=== PATIENT | male | born 1955 | race African-American/Black ===

== ENCOUNTER 2021-08-27 05:10 | Emergency (ER) | payer MEDICARE ==
[2021-08-27] MEDS ORDERED: Dexamethasone 10 MG/ML VIAL ONE (05:23)
[2021-08-27 05:55] LABS: #Lymphocytes 1.9 thou/uL (1.20-3.40); #Monocytes 0.7 thou/uL (0.11-0.59); #Neutrophils 4.9 thou/uL (1.40-6.50); %Basophils 0.1 % (0.0-1.0); %Eosinophils 0.6 % (0.0-10.0); %Lymphocytes 24.8 % (21.0-51.0); %Monocytes 9.7 % (0.0-10.0); %Neutrophils 64.8 % (42.0-75.0); Hemoglobin 14.4 g/dL (14.0-18.0); Mean Corpuscular HGB CONC 33.2 g/dL (32.0-36.0); Mean Corpuscular Hemoglobin 28.8 pg (27.0-31.0); Mean Corpuscular Volume 86.8 fL (78.0-98.0); Mean Platelet Volume 9.3 fL (7.4-10.4); Platelet Count 155 thou/uL (130-400); RBC Distribution Width 14.5 % (11.5-14.5); Red Blood Cell (RBC) Count 4.99 mill/uL (4.70-6.10); White Blood Cell (WBC) Count 7.5 thou/uL (4.8-10.8)
[2021-08-27 06:17] LABS: ALT (SGPT) 19 U/L (8-55); AST (SGOT) 20 U/L (5-34); Albumin 3.7 g/dL (3.4-4.8); Alkaline Phosphatase 56 U/L (40-110); Anion Gap 10 mmol/L (10-20); BUN (Urea Nitrogen) 9 mg/dL (8.4-25.7); Bilirubin, Total 0.6 mg/dL (0.2-1.2); Calc. Creatinine Clearance 0 mL/min (70-130); Carbon Dioxide 29 mmol/L (23-31); Chloride 106 mmol/L (98-107); Globulin 2.7 g/dL (2.4-3.5); Glucose 79 mg/dL (80-115); Potassium 3.4 mmol/L (3.5-5.1); Protein, Total 6.4 g/dL (5.8-8.1); Sodium 142 mmol/L (136-145)
[2021-08-27] MEDS ORDERED: Lorazepam 1 MG TAB ONE (06:53)
== END 2021-08-27 07:03 | disposition home or self-care (01) ==
LOC: EDBD 05:10 → ERS 05:10
DX: J44.1 Chronic obstructive pulmonary disease with (acute) exacerbation (principal); F41.9 Anxiety disorder, unspecified; R94.31 Abnormal electrocardiogram [ECG] [EKG]
CPT/HCPCS: 36415; 71045; 80053; 83880; 84484; 85025; 93005; 94640; 96374; J1100; J7620

== ENCOUNTER 2023-12-03 01:00 | Emergency (ER) | payer MEDICARE, MEDICAID ==
[2023-12-03] MEDS ORDERED: Ipratropium/Albuterol 3 ML NEB ONE (01:26)
[2023-12-03 01:40] LABS: #Monocytes 1.1 thou/uL (0.11-0.59); #Neutrophils 5.2 thou/uL (1.40-6.50); %Basophils 0.5 % (0.0-1.0); %Eosinophils 0.2 % (0.0-10.0); %Monocytes 13.9 % (0.0-10.0); Hematocrit 42.4 % (42.0-52.0); Hemoglobin 14.3 g/dL (14.0-18.0); Mean Corpuscular HGB CONC 33.7 g/dL (32.0-36.0); Mean Corpuscular Hemoglobin 26.7 pg (27.0-31.0); Mean Corpuscular Volume 79.3 fl (78.0-98.0); Mean Platelet Volume 10.2 fL (7.4-10.4); Platelet Count 135 10x3/uL (130-400); RBC Distribution Width 16.8 % (11.5-14.5); Red Blood Cell (RBC) Count 5.35 mill/uL (4.70-6.10); White Blood Cell (WBC) Count 8.2 10x3/uL (4.8-10.8)
[2023-12-03] MEDS ORDERED: cefTRIAXone (ROCEPHIN) 2 GM VIAL ONE (01:48)
[2023-12-03] MEDS ORDERED: Cefepime 2 GM VIAL ONE (01:50)
[2023-12-03 01:53] LABS: ALT (SGPT) 12 U/L (8-55); AST (SGOT) 20 U/L (5-34); Albumin 3.9 g/dL (3.4-4.8); Alkaline Phosphatase 56 U/L (40-110); Anion Gap 16 mmol/L (10-20); BUN (Urea Nitrogen) 6 mg/dL (8.4-25.7); Bilirubin, Total 0.7 mg/dL (0.2-1.2); CK (CPK) 89 U/L (30-200); Calc. Creatinine Clearance 0 mL/min (70-130); Calcium 8.5 mg/dL (7.8-10.44); Carbon Dioxide 25 mmol/L (23-31); Chloride 102 mmol/L (98-107); Estimated GFR 79; Globulin 3.2 g/dL (2.4-3.5); Glucose 93 mg/dL (80-115); Potassium 4.1 mmol/L (3.5-5.1); Protein, Total 7.1 g/dL (5.8-8.1); Sodium 139 mmol/L (136-145)
[2023-12-03 01:56] LABS: Bacteria/HPF None Seen HPF (None Seen); Bilirubin Negative (Negative); Blood, Urine Negative (Negative); CAUTI Indications for Culture Fever or rigors; Clarity Clear (Clear); Glucose, Urine (Dipstick) Normal (Negative); Ketone, Urine Negative (Negative); Leukocyte Negative Leu/uL (Negative); Nitrite Negative (Negative); Protein, Urine (Dipstick) 50 mg/dL (Neg-Trace); RBC/HPF 0-3 HPF (0-3); Specific Gravity, Urine 1.009 (1.002-1.036); Squamous Epithelial 0-3 HPF (0-3); Urobilinogen Normal mg/dL (Less than 2); WBC/HPF 0-3 HPF (0-3); pH, Urine 6.5 (5.0-9.0)
[2023-12-03 01:57] LABS: Acetaminophen Less than 10 mcg/mL (10.0-30.0); Alcohol Less than 10.0 mg/dL (Less than 10); Magnesium 1.9 mg/dL (1.6-2.6); Salicylate Less than 8.0 mg/dL (15.0-30.0)
[2023-12-03 01:59] LABS: Troponin I 0.017 ng/mL (< 0.028)
[2023-12-03 02:01] LABS: Urine Culture Reflex No No
[2023-12-03 02:03] LABS: Amphetamine Not Detected (NotDetected); Barbiturates Screen Not Detected (NotDetected); Benzodiazepine Screen Detected (NotDetected); Cocaine Metabolite Screen Not Detected (NotDetected); Methadone Not Detected (NotDetected); Methamphetamine Not Detected (NotDetected); Opiate Screen Detected (NotDetected); Oxycodone Screen Not Detected (NotDetected); Phencyclidine (PCP) Not Detected (NotDetected); THC/Cannabinoid Screen Detected (NotDetected); Tricyclic Screen Not Detected (NotDetected)
[2023-12-03] MEDS ORDERED: Azithromycin 500 MG VIAL ONE (02:36)
[2023-12-03 03:17] LABS: Influenza A by NAA Not Detected (NotDetected); Influenza B by NAA Not Detected (NotDetected); SARS-CoV-2 NAA Rapid Test Not Detected (NotDetected)
== END 2023-12-03 04:33 | disposition home or self-care (01) ==
LOC: ERS 01:00
DX: J44.1 Chronic obstructive pulmonary disease with (acute) exacerbation (principal); I10 Essential (primary) hypertension
CPT/HCPCS: 0240U; 71045; 80053; 80306; 80307; 81001; 82550; 83605; 83735; 83880; 84484; 85025; 87040; 87086; 87149 ×2; 93005; 94640; 94760; J0456; 36415; 87077; 87186; 96365; 96367; J0692; J0696; J7620

== ENCOUNTER 2024-03-14 22:36 | Inpatient (IN) | payer MEDICAID, MEDICARE ==
[2024-03-14] MEDS ORDERED: Dexamethasone 10 MG/ML VIAL ONE (23:21)
[2024-03-14 23:27] LABS: #Basophils 0.04 10x3/uL (0.0-0.2); %Basophils 0.4 % (0.0-1.0); %Eosinophils 0.7 % (0.0-10.0); %Lymphocytes 25.6 % (21.0-51.0); %Monocytes 11.3 % (0.0-10.0); %Neutrophils 61.7 % (42.0-75.0); Hematocrit 38.4 % (42.0-52.0); Hemoglobin 12.7 g/dL (14.0-18.0); Mean Corpuscular HGB CONC 33.1 g/dL (32.0-36.0); Mean Corpuscular Hemoglobin 27.8 pg (27.0-31.0); Mean Platelet Volume 11.6 fL (7.4-10.4); Platelet Count 178 10x3/uL (130-400); RBC Distribution Width 14.8 % (11.5-14.5); Red Blood Cell (RBC) Count 4.57 mill/uL (4.70-6.10)
[2024-03-14] MEDS ORDERED: Albuterol 2.5 MG (3 mL) NEB ONE (23:40)
[2024-03-14] MEDS ORDERED: Ipratropium/Albuterol 3 ML NEB ONE (23:40)
[2024-03-15] MEDS ORDERED: Magnesium 2 GM/50 ML BAG (IN WATER) ONE (00:02)
[2024-03-15 00:11] LABS: ALT (SGPT) 35 U/L (8-55); AST (SGOT) 75 U/L (5-34); Albumin 3.5 g/dL (3.4-4.8); Alkaline Phosphatase 86 U/L (40-110); Anion Gap 18 mmol/L (10-20); BUN (Urea Nitrogen) 20 mg/dL (8.4-25.7); Bilirubin, Total 0.7 mg/dL (0.2-1.2); Calc. Creatinine Clearance 0 mL/min (70-130); Calcium 8.7 mg/dL (7.8-10.44); Carbon Dioxide 23 mmol/L (23-31); Chloride 107 mmol/L (98-107); Estimated GFR 63; Globulin 3.5 g/dL (2.4-3.5); Glucose 95 mg/dL (80-115); Potassium 3.8 mmol/L (3.5-5.1); Sodium 144 mmol/L (136-145)
[2024-03-15] MEDS ORDERED: LevoFLOXacin 750 mg/D5W 150 ml Premix Bag ONE (00:39)
[2024-03-15] MEDS ORDERED: Aspirin Chewable 81 MG TAB ONE (00:40)
[2024-03-15] MEDS ORDERED: Ondansetron PF 4 MG/2 ML Vial IVP PRN (01:22)
[2024-03-15] MEDS ORDERED: Acetaminophen 325 MG TAB PO PRN (01:22)
[2024-03-15] MEDS: Furosemide 20 MG (2 mL) VIAL SLOW IVP SCH ×2 (03:09→15:11)
[2024-03-15 03:36] VITALS: BMI 18.9
[2024-03-15 04:50] LABS: #Basophils 0.03 10x3/uL (0.0-0.2); #Eosinphils Less than 0.03 10x3/uL (0.0-0.7); %Basophils 0.4 % (0.0-1.0); %Lymphocytes 10.3 % (21.0-51.0); %Monocytes 1.8 % (0.0-10.0); Hematocrit 37.5 % (42.0-52.0); Hemoglobin 12.4 g/dL (14.0-18.0); Mean Corpuscular HGB CONC 33.1 g/dL (32.0-36.0); Mean Corpuscular Hemoglobin 26.9 pg (27.0-31.0); Mean Corpuscular Volume 81.3 fL (78.0-98.0); Platelet Count 186 10x3/uL (130-400); RBC Distribution Width 14.7 % (11.5-14.5); Red Blood Cell (RBC) Count 4.61 mill/uL (4.70-6.10)
[2024-03-15 05:51] LABS: Anion Gap 10 mmol/L (10-20); BUN (Urea Nitrogen) 18 mg/dL (8.4-25.7); Calc. Creatinine Clearance 49 mL/min (70-130); Calcium 8.8 mg/dL (7.8-10.44); Carbon Dioxide 26 mmol/L (23-31); Chloride 108 mmol/L (98-107); Estimated GFR 72; Glucose 111 mg/dL (80-115); Potassium 4.4 mmol/L (3.5-5.1); Sodium 140 mmol/L (136-145)
[2024-03-15] MEDS: methylPREDNISolone Sod Succ 40 MG VIAL IVP SCH (06:18)
[2024-03-15] MEDS: Ipratropium/Albuterol 3 ML NEB NEB SCH (07:57)
[2024-03-15] MEDS: Mometasone 200 MCG/Formoterol 5 MCG 120 PUFF INHALER INH SCH (07:57)
[2024-03-15] MEDS: Enoxaparin 40 MG (0.4 mL) SYRINGE SC SCH (08:58)
[2024-03-15] MEDS: cefTRIAXone\\ROCEPHIN 1 GM in Sodium Chloride 0.9% 100 ML IVPB SCH (20:17)
[2024-03-15] MEDS: ALPRAZolam 0.25 MG TAB PO PRN (21:02)
[2024-03-15] MEDS: Doxycycline 100 MG in Sodium Chloride 0.9% 100 ML IVPB SCH (21:02)
[2024-03-16 05:01] LABS: #Basophils Less than 0.03 10x3/uL (0.0-0.2); #Eosinphils Less than 0.03 10x3/uL (0.0-0.7); %Lymphocytes 11.9 % (21.0-51.0); %Monocytes 7.6 % (0.0-10.0); %Neutrophils 80.2 % (42.0-75.0); Hematocrit 36.4 % (42.0-52.0); Hemoglobin 11.9 g/dL (14.0-18.0); Mean Corpuscular HGB CONC 32.7 g/dL (32.0-36.0); Mean Corpuscular Hemoglobin 27.1 pg (27.0-31.0); Mean Corpuscular Volume 82.9 fL (78.0-98.0); Platelet Count 163 10x3/uL (130-400); RBC Distribution Width 14.9 % (11.5-14.5); Red Blood Cell (RBC) Count 4.39 mill/uL (4.70-6.10)
[2024-03-16 05:22] LABS: Anion Gap 15 mmol/L (10-20); BUN (Urea Nitrogen) 28 mg/dL (8.4-25.7); Calc. Creatinine Clearance 40 mL/min (70-130); Carbon Dioxide 25 mmol/L (23-31); Chloride 105 mmol/L (98-107); Estimated GFR 55; Glucose 141 mg/dL (80-115); Potassium 4.5 mmol/L (3.5-5.1); Sodium 140 mmol/L (136-145)
[2024-03-16] MEDS: Enoxaparin 30 MG (0.3 mL) SYRINGE SC SCH (09:48)
[2024-03-17 04:18] LABS: #Basophils Less than 0.03 10x3/uL (0.0-0.2); #Eosinphils Less than 0.03 10x3/uL (0.0-0.7); %Basophils 0.1 % (0.0-1.0); %Lymphocytes 6.8 % (21.0-51.0); %Monocytes 3.6 % (0.0-10.0); %Neutrophils 88.5 % (42.0-75.0); Hematocrit 36.4 % (42.0-52.0); Hemoglobin 12.2 g/dL (14.0-18.0); Mean Corpuscular HGB CONC 33.5 g/dL (32.0-36.0); Mean Corpuscular Hemoglobin 27.4 pg (27.0-31.0); Mean Corpuscular Volume 81.6 fL (78.0-98.0); Mean Platelet Volume 11.6 fL (7.4-10.4); Platelet Count 178 10x3/uL (130-400); RBC Distribution Width 14.6 % (11.5-14.5); Red Blood Cell (RBC) Count 4.46 mill/uL (4.70-6.10)
[2024-03-17 04:42] LABS: Anion Gap 15 mmol/L (10-20); BUN (Urea Nitrogen) 35 mg/dL (8.4-25.7); Calc. Creatinine Clearance 39 mL/min (70-130); Calcium 9.3 mg/dL (7.8-10.44); Carbon Dioxide 29 mmol/L (23-31); Chloride 99 mmol/L (98-107); Estimated GFR 54; Glucose 165 mg/dL (80-115); Potassium 4.7 mmol/L (3.5-5.1); Sodium 138 mmol/L (136-145)
[2024-03-17] MEDS: Nitroglycerin 0.4 MG TAB (25 Tab Bottle) SL PRN (07:38)
[2024-03-17] MEDS: Ipratropium/Albuterol 3 ML NEB NEB SCH (12:20)
[2024-03-17 15:21] VITALS: BP 123/79; TEMP 97.9
== END 2024-03-17 19:10 | disposition home or self-care (01) | DRG 191 ==
LOC: ERS 22:36 → 2NO 03-15 01:13
PROVIDERS: ADMIT Internal Medicine; ATTEND Internal Medicine
DX: J44.1 Chronic obstructive pulmonary disease with (acute) exacerbation (principal); I50.42 Chronic combined systolic (congestive) and diastolic (congestive) heart failure; J96.11 Chronic respiratory failure with hypoxia; D64.9 Anemia, unspecified; F17.210 Nicotine dependence, cigarettes, uncomplicated; Z99.81 Dependence on supplemental oxygen; Z88.0 Allergy status to penicillin; Z79.899 Other long term (current) drug therapy; Z79.52 Long term (current) use of systemic steroids; Z95.810 Presence of automatic (implantable) cardiac defibrillator
CPT/HCPCS: 36415; 36416; 71045; 80048; 80053; 83605; 83880; 84484; 85025; 87040; 87077; 87149; 93005; 94640; 96365; 96367; 96375; J0696; J1100; J1650; J1940; J1956; J2920; J3475; J3490; J7611; J7620

== ENCOUNTER 2024-03-29 23:17 | Emergency (ER) | payer MEDICAID, MEDICARE ==
[2024-03-30 00:15] LABS: #Basophils 0.04 10x3/uL (0.0-0.2); %Basophils 0.5 % (0.0-1.0); %Eosinophils 0.8 % (0.0-10.0); %Lymphocytes 22.1 % (21.0-51.0); %Monocytes 10.2 % (0.0-10.0); Hematocrit 36.1 % (42.0-52.0); Hemoglobin 11.4 g/dL (14.0-18.0); Mean Corpuscular HGB CONC 31.6 g/dL (32.0-36.0); Mean Corpuscular Hemoglobin 27.8 pg (27.0-31.0); Mean Platelet Volume 10.5 fL (7.4-10.4); Platelet Count 171 10x3/uL (130-400); RBC Distribution Width 14.8 % (11.5-14.5)
[2024-03-30 00:32] LABS: ALT (SGPT) 34 U/L (8-55); AST (SGOT) 51 U/L (5-34); Albumin 3.1 g/dL (3.4-4.8); Alkaline Phosphatase 108 U/L (40-110); Anion Gap 16 mmol/L (10-20); BUN (Urea Nitrogen) 15 mg/dL (8.4-25.7); Bilirubin, Total 0.6 mg/dL (0.2-1.2); Calc. Creatinine Clearance 0 mL/min (70-130); Calcium 8.7 mg/dL (7.8-10.44); Carbon Dioxide 26 mmol/L (23-31); Chloride 108 mmol/L (98-107); Estimated GFR 60; Globulin 3.4 g/dL (2.4-3.5); Glucose 108 mg/dL (80-115); Potassium 4.3 mmol/L (3.5-5.1); Protein, Total 6.5 g/dL (5.8-8.1); Sodium 146 mmol/L (136-145)
[2024-03-30 00:36] LABS: Troponin I 0.031 ng/mL (< 0.028)
[2024-03-30] MEDS ORDERED: Magnesium 2 GM/50 ML BAG (IN WATER) ONE (00:38)
[2024-03-30] MEDS ORDERED: methylPREDNISolone Sod Succ/PF 125 MG/2 ML VIAL ONE (00:38)
[2024-03-30] MEDS ORDERED: Ipratropium/Albuterol 3 ML NEB ONE ×2 (00:40→03:51)
[2024-03-30 09:45] LABS: Troponin I 0.024 ng/mL (< 0.028)
[2024-03-30] MEDS ORDERED: Lorazepam 2 MG/ML VIAL ONE (10:31)
[2024-03-30] MEDS ORDERED: Iopamidol-370 76% 500 ML MDV (1 ML CHARGE) ONE (15:44)
== END 2024-03-30 12:05 | disposition home or self-care (01) ==
LOC: ERS 23:17
DX: J44.9 Chronic obstructive pulmonary disease, unspecified (principal); F41.9 Anxiety disorder, unspecified; I11.0 Hypertensive heart disease with heart failure; I50.9 Heart failure, unspecified; R00.0 Tachycardia, unspecified
CPT/HCPCS: 71045; 71275; 80053; 83880; 84484; 85025; 93005; 94760; J2060; J2930; J3475; Q9967; 36415; 96374; 96375; J7620

== ENCOUNTER 2024-04-08 15:44 | Emergency (ER) | payer MEDICAID, MEDICARE ==
[2024-04-08] MEDS ORDERED: methylPREDNISolone Sod Succ/PF 125 MG/2 ML VIAL ONE (16:57)
[2024-04-08 17:00] LABS: #Basophils Less than 0.03 10x3/uL (0.0-0.2); #Eosinphils Less than 0.03 10x3/uL (0.0-0.7); %Basophils 0.3 % (0.0-1.0); %Eosinophils 0.3 % (0.0-10.0); %Lymphocytes 18.1 % (21.0-51.0); %Monocytes 11.1 % (0.0-10.0); %Neutrophils 69.9 % (42.0-75.0); Hematocrit 39.3 % (42.0-52.0); Hemoglobin 12.4 g/dL (14.0-18.0); Mean Corpuscular HGB CONC 31.6 g/dL (32.0-36.0); Mean Corpuscular Hemoglobin 27.1 pg (27.0-31.0); Mean Corpuscular Volume 85.8 fL (78.0-98.0); Mean Platelet Volume 10.8 fL (7.4-10.4); Platelet Count 179 10x3/uL (130-400); RBC Distribution Width 14.5 % (11.5-14.5); Red Blood Cell (RBC) Count 4.58 mill/uL (4.70-6.10)
[2024-04-08] MEDS ORDERED: Ipratropium/Albuterol 3 ML NEB ONE (17:04)
[2024-04-08 17:13] LABS: Acetaminophen Less than 10 mcg/mL (10.0-30.0); Alcohol Less than 10.0 mg/dL (Less than 10); Salicylate Less than 8.0 mg/dL (15.0-30.0)
[2024-04-08 17:14] LABS: ALT (SGPT) 17 U/L (8-55); AST (SGOT) 16 U/L (5-34); Albumin 3.4 g/dL (3.4-4.8); Alkaline Phosphatase 78 U/L (40-110); Anion Gap 9 mmol/L (10-20); BUN (Urea Nitrogen) 16 mg/dL (8.4-25.7); Bilirubin, Total 0.8 mg/dL (0.2-1.2); Calc. Creatinine Clearance 0 mL/min (70-130); Calcium 9.1 mg/dL (7.8-10.44); Carbon Dioxide 35 mmol/L (23-31); Chloride 103 mmol/L (98-107); Estimated GFR 60; Globulin 3.3 g/dL (2.4-3.5); Glucose 86 mg/dL (83-110); Potassium 4.3 mmol/L (3.5-5.1); Protein, Total 6.7 g/dL (5.8-8.1); Sodium 143 mmol/L (136-145)
== END 2024-04-08 18:24 | disposition home or self-care (01) ==
LOC: ERS 15:44
DX: J44.1 Chronic obstructive pulmonary disease with (acute) exacerbation (principal); I10 Essential (primary) hypertension
CPT/HCPCS: 71045; 80307; 83880; 93005; 94760; 96374; 99285; J2930; 80053; 84443; 85025; J7620

== ENCOUNTER 2024-04-13 05:45 | Observation (INO) | payer MEDICARE ==
[2024-04-13] MEDS ORDERED: Ipratropium/Albuterol 3 ML NEB ONE (07:42)
[2024-04-13] MEDS ORDERED: Albuterol 2.5 MG (0.5 mL) NEB ONE (07:42)
[2024-04-13 08:50] LABS: #Basophils 0.03 10x3/uL (0.0-0.2); %Basophils 0.4 % (0.0-1.0); %Eosinophils 0.4 % (0.0-10.0); %Lymphocytes 27.4 % (21.0-51.0); %Monocytes 11.4 % (0.0-10.0); Hematocrit 40.9 % (42.0-52.0); Hemoglobin 13.4 g/dL (14.0-18.0); Mean Corpuscular HGB CONC 32.8 g/dL (32.0-36.0); Mean Corpuscular Hemoglobin 27.2 pg (27.0-31.0); Mean Platelet Volume 10.1 fL (7.4-10.4); Platelet Count 145 10x3/uL (130-400); RBC Distribution Width 14.4 % (11.5-14.5); Red Blood Cell (RBC) Count 4.93 mill/uL (4.70-6.10)
[2024-04-13 09:27] LABS: ALT (SGPT) 12 U/L (8-55); AST (SGOT) 23 U/L (5-34); Albumin 3.3 g/dL (3.4-4.8); Alkaline Phosphatase 72 U/L (40-110); Anion Gap 13 mmol/L (10-20); BUN (Urea Nitrogen) 9 mg/dL (8.4-25.7); Bilirubin, Total 0.8 mg/dL (0.2-1.2); Calc. Creatinine Clearance 0 mL/min (70-130); Calcium 8.5 mg/dL (7.8-10.44); Carbon Dioxide 30 mmol/L (23-31); Chloride 104 mmol/L (98-107); Estimated GFR 77; Globulin 3.1 g/dL (2.4-3.5); Glucose 85 mg/dL (83-110); Potassium 4.1 mmol/L (3.5-5.1); Protein, Total 6.4 g/dL (5.8-8.1); Sodium 143 mmol/L (136-145)
[2024-04-13] MEDS ORDERED: Ondansetron ODT 4 MG TAB PO PRN (14:15)
[2024-04-13] MEDS ORDERED: Senokot 8.6 MG TAB PO PRN (14:15)
[2024-04-13] MEDS ORDERED: Bisacodyl 5 MG TAB PO PRN (14:15)
[2024-04-13] MEDS ORDERED: Ondansetron PF 4 MG/2 ML Vial SLOW IVP PRN (14:15)
[2024-04-13 14:50] VITALS: BMI 18.3
[2024-04-13] MEDS: predniSONE 20 MG TAB PO SCH (15:25)
[2024-04-13] MEDS: Enoxaparin 30 MG (0.3 mL) SYRINGE SC SCH (15:25)
[2024-04-13] MEDS: Amlodipine 10 MG TAB PO SCH (15:25)
[2024-04-13] MEDS: Azithromycin 250 MG TAB PO SCH (15:25)
[2024-04-13] MEDS: Ipratropium/Albuterol 3 ML NEB NEB SCH (17:11)
[2024-04-13] MEDS: traZODone HCl 50 MG TAB PO SCH (20:48)
[2024-04-13] MEDS: Famotidine 20 MG TAB PO SCH (20:48)
[2024-04-13] MEDS: guaiFENesin ER 600 MG TAB PO SCH (20:48)
[2024-04-13] MEDS: HYDROcodone/Acetaminophen 5/325 mg Tablet PO PRN (21:39)
[2024-04-14 07:01] LABS: #Basophils Less than 0.03 10x3/uL (0.0-0.2); #Eosinphils Less than 0.03 10x3/uL (0.0-0.7); %Basophils 0.1 % (0.0-1.0); %Lymphocytes 17.1 % (21.0-51.0); %Monocytes 8.3 % (0.0-10.0); %Neutrophils 74.1 % (42.0-75.0); Hematocrit 37.6 % (42.0-52.0); Hemoglobin 12.2 g/dL (14.0-18.0); Mean Corpuscular HGB CONC 32.4 g/dL (32.0-36.0); Mean Corpuscular Hemoglobin 26.1 pg (27.0-31.0); Mean Corpuscular Volume 80.5 fL (78.0-98.0); Mean Platelet Volume 11.5 fL (7.4-10.4); Platelet Count 174 10x3/uL (130-400); RBC Distribution Width 14.1 % (11.5-14.5); Red Blood Cell (RBC) Count 4.67 mill/uL (4.70-6.10)
[2024-04-14 07:21] LABS: Anion Gap 10 mmol/L (10-20); BUN (Urea Nitrogen) 9 mg/dL (8.4-25.7); Calc. Creatinine Clearance 43 mL/min (70-130); Calcium 8.4 mg/dL (7.8-10.44); Carbon Dioxide 29 mmol/L (23-31); Chloride 103 mmol/L (98-107); Estimated GFR 66; Glucose 170 mg/dL (83-110); Potassium 4.1 mmol/L (3.5-5.1); Sodium 138 mmol/L (136-145)
[2024-04-14] MEDS: Enoxaparin 30 MG (0.3 mL) SYRINGE SC SCH (08:06)
[2024-04-14] MEDS: predniSONE 20 MG TAB PO SCH (08:09)
[2024-04-14] MEDS: Azithromycin 250 MG TAB PO SCH (08:09)
[2024-04-14] MEDS: Amlodipine 10 MG TAB PO SCH (08:09)
[2024-04-14 12:24] VITALS: BMI 18.3
[2024-04-14] MEDS: Acetaminophen 325 MG TAB PO PRN (16:23)
[2024-04-14 17:19] VITALS: BP 139/71; TEMP 98.4
== END 2024-04-14 17:01 | disposition short-term general hospital (02) ==
LOC: ERS 05:45 → T4-A 11:57
PROVIDERS: ADMIT Internal Medicine; ATTEND Internal Medicine
DX: J96.21 Acute and chronic respiratory failure with hypoxia (principal); J44.1 Chronic obstructive pulmonary disease with (acute) exacerbation; I50.42 Chronic combined systolic (congestive) and diastolic (congestive) heart failure; I13.0 Hypertensive heart and chronic kidney disease with heart failure and stage 1 through stage 4 chronic kidney disease, or unspecified chronic kidney disease; N18.2 Chronic kidney disease, stage 2 (mild); D63.1 Anemia in chronic kidney disease; G47.00 Insomnia, unspecified; Z86.718 Personal history of other venous thrombosis and embolism; Z79.01 Long term (current) use of anticoagulants; Z99.81 Dependence on supplemental oxygen; Z79.51 Long term (current) use of inhaled steroids; Z88.0 Allergy status to penicillin
CPT/HCPCS: 71045; 80048; 80053; 85025 ×2; 87633; 87798 ×2; 93005; 94640 ×3; 94760; 97116; 99285; J1650 ×2; 36415; 96372; G0378; J7512; J7611; J7620

== ENCOUNTER 2024-04-17 14:30 | Emergency (ER) | payer MEDICARE ==
[2024-04-17 15:25] LABS: #Basophils Less than 0.03 10x3/uL (0.0-0.2); %Basophils 0.2 % (0.0-1.0); %Eosinophils 0.5 % (0.0-10.0); %Lymphocytes 24.3 % (21.0-51.0); %Monocytes 13.5 % (0.0-10.0); %Neutrophils 61.2 % (42.0-75.0); Hematocrit 45.7 % (42.0-52.0); Hemoglobin 14.4 g/dL (14.0-18.0); Mean Corpuscular HGB CONC 31.5 g/dL (32.0-36.0); Mean Corpuscular Hemoglobin 26.9 pg (27.0-31.0); Mean Corpuscular Volume 85.4 fL (78.0-98.0); Mean Platelet Volume 11.2 fL (7.4-10.4); Platelet Count 175 10x3/uL (130-400); RBC Distribution Width 14.6 % (11.5-14.5); Red Blood Cell (RBC) Count 5.35 mill/uL (4.70-6.10)
[2024-04-17 15:35] LABS: Acetaminophen Less than 10 mcg/mL (10.0-30.0); Alcohol Less than 10.0 mg/dL (Less than 10); Salicylate Less than 8.0 mg/dL (15.0-30.0)
[2024-04-17 15:36] LABS: ALT (SGPT) 20 U/L (8-55); AST (SGOT) 24 U/L (5-34); Albumin 3.8 g/dL (3.4-4.8); Alkaline Phosphatase 72 U/L (40-110); Anion Gap 11 mmol/L (10-20); BUN (Urea Nitrogen) 14 mg/dL (8.4-25.7); Bilirubin, Total 0.6 mg/dL (0.2-1.2); Calc. Creatinine Clearance 0 mL/min (70-130); Carbon Dioxide 34 mmol/L (23-31); Chloride 105 mmol/L (98-107); Estimated GFR 59; Globulin 3.4 g/dL (2.4-3.5); Glucose 165 mg/dL (83-110); Potassium 3.8 mmol/L (3.5-5.1); Protein, Total 7.2 g/dL (5.8-8.1); Sodium 146 mmol/L (136-145)
[2024-04-17 15:42] LABS: Bacteria/HPF None Seen HPF (None Seen); Bilirubin Negative (Negative); Blood, Urine Negative (Negative); CAUTI Indications for Culture Alt mental st,lethar; Clarity Clear (Clear); Glucose, Urine (Dipstick) Normal (Negative); Ketone, Urine Negative (Negative); Leukocyte Negative Leu/uL (Negative); Nitrite Negative (Negative); Protein, Urine (Dipstick) 70 mg/dL (Neg-Trace); RBC/HPF 0-3 HPF (0-3); Specific Gravity, Urine 1.014 (1.002-1.036); Squamous Epithelial 0-3 HPF (0-3); Urobilinogen Normal mg/dL (Less than 2); WBC/HPF 0-3 HPF (0-3); pH, Urine 5.5 (5.0-9.0)
[2024-04-17 15:44] LABS: Urine Culture Reflex No No
[2024-04-17 15:47] LABS: Amphetamine Not Detected (NotDetected); Barbiturates Screen Not Detected (NotDetected); Benzodiazepine Screen Detected (NotDetected); Cocaine Metabolite Screen Not Detected (NotDetected); Methadone Not Detected (NotDetected); Methamphetamine Not Detected (NotDetected); Opiate Screen Not Detected (NotDetected); Oxycodone Screen Not Detected (NotDetected); Phencyclidine (PCP) Not Detected (NotDetected); THC/Cannabinoid Screen Not Detected (NotDetected); Tricyclic Screen Not Detected (NotDetected)
[2024-04-17] MEDS ORDERED: LORazepam 2 MG/ML SYR.(CARPUJECT) ONE (17:48)
[2024-04-18] MEDS ORDERED: Ipratropium/Albuterol 3 ML NEB ONE (00:14)
== END 2024-04-17 19:01 ==
LOC: ERS 14:30
DX: R41.82 Altered mental status, unspecified (principal); J44.9 Chronic obstructive pulmonary disease, unspecified; I10 Essential (primary) hypertension; Z55.6 Problems related to health literacy
CPT/HCPCS: 70450; 71045; 80306; 80307; 81001; 82140; 93005; 96374; 96375; 99285; J1790; J2060; 80053; 84443; 85025

== ENCOUNTER 2024-04-17 21:12 | Inpatient (IN) | payer MEDICARE ==
[~2024-04-17 21:12] MED LIST: Iopamidol-370 76% 500 ML MDV (1 ML CHARGE) ONE
[2024-04-17] MEDS ORDERED: methylPREDNISolone Sod Succ/PF 125 MG/2 ML VIAL ONE (22:23)
[2024-04-17] MEDS ORDERED: Ipratropium/Albuterol 3 ML NEB ONE (22:23)
[2024-04-17 22:59] LABS: #Basophils Less than 0.03 10x3/uL (0.0-0.2); %Basophils 0.3 % (0.0-1.0); %Eosinophils 0.5 % (0.0-10.0); %Monocytes 12.6 % (0.0-10.0); %Neutrophils 65.2 % (42.0-75.0); Hematocrit 40.8 % (42.0-52.0); Hemoglobin 13.1 g/dL (14.0-18.0); Mean Corpuscular HGB CONC 32.1 g/dL (32.0-36.0); Mean Corpuscular Hemoglobin 26.5 pg (27.0-31.0); Mean Corpuscular Volume 82.6 fL (78.0-98.0); Mean Platelet Volume 12.5 fL (7.4-10.4); Platelet Count 165 10x3/uL (130-400); RBC Distribution Width 14.6 % (11.5-14.5); Red Blood Cell (RBC) Count 4.94 mill/uL (4.70-6.10)
[2024-04-17 23:09] LABS: ALT (SGPT) 17 U/L (8-55); AST (SGOT) 26 U/L (5-34); Albumin 3.4 g/dL (3.4-4.8); Alkaline Phosphatase 64 U/L (40-110); Anion Gap 10 mmol/L (10-20); BUN (Urea Nitrogen) 12 mg/dL (8.4-25.7); Bilirubin, Total 0.5 mg/dL (0.2-1.2); Calc. Creatinine Clearance 0 mL/min (70-130); Calcium 8.5 mg/dL (7.8-10.44); Carbon Dioxide 31 mmol/L (23-31); Chloride 106 mmol/L (98-107); Estimated GFR 80; Globulin 2.9 g/dL (2.4-3.5); Glucose 168 mg/dL (83-110); Magnesium 1.7 mg/dL (1.6-2.6); Potassium 3.9 mmol/L (3.5-5.1); Protein, Total 6.3 g/dL (5.8-8.1); Sodium 143 mmol/L (136-145)
[2024-04-17 23:15] LABS: Troponin I 0.041 ng/mL (< 0.028)
[2024-04-17 23:52] LABS: Influenza A by NAA Not Detected (NotDetected); Influenza B by NAA Not Detected (NotDetected); SARS-CoV-2 NAA Rapid Test Not Detected (NotDetected)
[2024-04-18] MEDS ORDERED: Azithromycin 500 MG VIAL ONE (01:31)
[2024-04-18] MEDS ORDERED: Acetaminophen 650 MG Suppository PR PRN (01:32)
[2024-04-18] MEDS ORDERED: Acetaminophen 325 MG TAB PO PRN (01:32)
[2024-04-18] MEDS ORDERED: Nitroglycerin 0.4 MG TAB (25 Tab Bottle) SL PRN (01:32)
[2024-04-18] MEDS ORDERED: Ondansetron ODT 4 MG TAB PO PRN (01:32)
[2024-04-18] MEDS ORDERED: Ondansetron PF 4 MG/2 ML Vial IVP PRN (01:32)
[2024-04-18] MEDS ORDERED: Nitroglycerin 0.4 MG TAB 1 EACH ONE (01:33)
[2024-04-18] MEDS ORDERED: Benzonatate 100 MG CAP PO PRN (01:35)
[2024-04-18] MEDS ORDERED: Guaifenesin DM 100-10/5 ML UDCUP PO PRN (01:35)
[2024-04-18] MEDS ORDERED: Sterile Water 10 ML ONE (02:17)
[2024-04-18] MEDS ORDERED: OLANZapine 10 MG VIAL IM ONE (02:17)
[2024-04-18 02:29] LABS: #Basophils Less than 0.03 10x3/uL (0.0-0.2); #Eosinphils Less than 0.03 10x3/uL (0.0-0.7); %Basophils 0.1 % (0.0-1.0); %Lymphocytes 8.6 % (21.0-51.0); %Monocytes 1.7 % (0.0-10.0); %Neutrophils 89.2 % (42.0-75.0); Hemoglobin 13.2 g/dL (14.0-18.0); Mean Corpuscular HGB CONC 32.2 g/dL (32.0-36.0); Mean Corpuscular Hemoglobin 26.5 pg (27.0-31.0); Mean Corpuscular Volume 82.3 fL (78.0-98.0); Mean Platelet Volume 11.6 fL (7.4-10.4); Platelet Count 171 10x3/uL (130-400); RBC Distribution Width 14.6 % (11.5-14.5); Red Blood Cell (RBC) Count 4.98 mill/uL (4.70-6.10)
[2024-04-18 02:57] LABS: Troponin I 0.028 ng/mL (< 0.028)
[2024-04-18 03:25] LABS: Anion Gap 14 mmol/L (10-20); BUN (Urea Nitrogen) 12 mg/dL (8.4-25.7); Calc. Creatinine Clearance 0 mL/min (70-130); Calcium 8.5 mg/dL (7.8-10.44); Carbon Dioxide 27 mmol/L (23-31); Cardiac Risk 2.7 (Less than 4.5); Chloride 105 mmol/L (98-107); Cholesterol 154 mg/dl (< 200 Desired); Estimated GFR 74; Glucose 175 mg/dL (83-110); HDL Cholesterol 57 mg/dL (>60 Neg Risk); LDL Cholesterol, Calculated 78 mg/dL; Potassium 3.7 mmol/L (3.5-5.1); Sodium 142 mmol/L (136-145); Triglycerides 95 mg/dL (Less than 150)
[2024-04-18 03:58] VITALS: BMI 19.0
[2024-04-18] MEDS ORDERED: Ipratropium/Albuterol 3 ML NEB ONE (04:55)
[2024-04-18] MEDS ORDERED: Magnesium 2 GM/50 ML BAG (IN WATER) ONE (04:55)
[2024-04-18] MEDS ORDERED: Cefepime 1 GM VIAL ONE (04:55)
[2024-04-18] MEDS ORDERED: cefTRIAXone (ROCEPHIN) 1 GM VIAL ONE (04:56)
[2024-04-18] MEDS: Ipratropium/Albuterol 3 ML NEB NEB SCH (05:01)
[2024-04-18] MEDS: cefTRIAXone\\ROCEPHIN 1 GM in Sodium Chloride 0.9% 100 ML IVPB SCH (05:03)
[2024-04-18] MEDS: Magnesium 2 GM/50 ML(in water) 2 GM in Premix 1 BAG IVPB SCH (06:00)
[2024-04-18] MEDS ORDERED: methylPREDNISolone Sod Succ 40 MG VIAL ONE ×2 (07:28→12:20)
[2024-04-18 07:37] LABS: Troponin I 0.026 ng/mL (< 0.028)
[2024-04-18] MEDS: methylPREDNISolone Sod Succ 40 MG VIAL IVP SCH (07:43)
[2024-04-18] MEDS ORDERED: Amlodipine 5 MG TAB ONE (09:17)
[2024-04-18] MEDS ORDERED: Aspirin Chewable 81 MG TAB ONE (09:17)
[2024-04-18] MEDS ORDERED: guaiFENesin ER 600 MG TAB ONE (09:17)
[2024-04-18] MEDS ORDERED: Enoxaparin 40 MG (0.4 mL) SYRINGE ONE (09:18)
[2024-04-18] MEDS: Amlodipine 10 MG TAB PO SCH (09:26)
[2024-04-18] MEDS: guaiFENesin ER 600 MG TAB PO SCH (09:27)
[2024-04-18] MEDS: Aspirin Chewable 81 MG TAB PO SCH (09:27)
[2024-04-18] MEDS: Enoxaparin 40 MG (0.4 mL) SYRINGE SC SCH (09:32)
[2024-04-18] MEDS ORDERED: Albuterol 2.5 MG (3 mL) NEB NEB SCH (10:30)
[2024-04-18] MEDS: Mometasone 200 MCG/Formoterol 5 MCG 120 PUFF INHALER INH SCH (10:45)
[2024-04-18] MEDS ORDERED: Lorazepam 0.5 MG TAB ONE (11:41)
[2024-04-18] MEDS: Lorazepam 0.5 MG TAB PO PRN (11:43)
[2024-04-18] MEDS: traZODone HCl 50 MG TAB PO SCH (22:39)
[2024-04-19] MEDS: Azithromycin 500 MG in Sodium Chloride 0.9% 250 ML 250 ML IVPB SCH (02:11)
[2024-04-19] MEDS: Ipratropium Bromide 2.5 ml Neb NEB PRN (04:39)
[2024-04-19 04:43] LABS: #Basophils Less than 0.03 10x3/uL (0.0-0.2); #Eosinphils Less than 0.03 10x3/uL (0.0-0.7); %Lymphocytes 5.9 % (21.0-51.0); %Neutrophils 89.8 % (42.0-75.0); Hematocrit 34.8 % (42.0-52.0); Hemoglobin 11.4 g/dL (14.0-18.0); Mean Corpuscular HGB CONC 32.8 g/dL (32.0-36.0); Mean Corpuscular Hemoglobin 26.2 pg (27.0-31.0); Mean Platelet Volume 11.3 fL (7.4-10.4); Platelet Count 158 10x3/uL (130-400); RBC Distribution Width 14.2 % (11.5-14.5); Red Blood Cell (RBC) Count 4.35 mill/uL (4.70-6.10)
[2024-04-19 04:58] LABS: Anion Gap 5 mmol/L (10-20); BUN (Urea Nitrogen) 21 mg/dL (8.4-25.7); Calc. Creatinine Clearance 49 mL/min (70-130); Calcium 8.1 mg/dL (7.8-10.44); Carbon Dioxide 32 mmol/L (23-31); Chloride 101 mmol/L (98-107); Estimated GFR 63; Glucose 167 mg/dL (83-110); Magnesium 1.9 mg/dL (1.6-2.6); Sodium 134 mmol/L (136-145)
[2024-04-19 13:13] VITALS: BMI 19.0
[2024-04-19] MEDS: Lorazepam 0.5 MG TAB PO SCH (14:28)
[2024-04-19] MEDS: Dexamethasone 4 MG TAB PO SCH (17:54)
[2024-04-19] MEDS: LevoFLOXacin 750 MG TAB PO SCH (17:54)
[2024-04-20 04:01] LABS: #Basophils Less than 0.03 10x3/uL (0.0-0.2); #Eosinphils Less than 0.03 10x3/uL (0.0-0.7); %Basophils 0.1 % (0.0-1.0); %Lymphocytes 5.6 % (21.0-51.0); %Monocytes 5.7 % (0.0-10.0); %Neutrophils 88.1 % (42.0-75.0); Hematocrit 34.6 % (42.0-52.0); Hemoglobin 11.4 g/dL (14.0-18.0); Mean Corpuscular HGB CONC 32.9 g/dL (32.0-36.0); Mean Corpuscular Hemoglobin 27.1 pg (27.0-31.0); Mean Corpuscular Volume 82.4 fL (78.0-98.0); Platelet Count 186 10x3/uL (130-400); RBC Distribution Width 14.6 % (11.5-14.5)
[2024-04-20 04:44] LABS: Anion Gap 10 mmol/L (10-20); BUN (Urea Nitrogen) 25 mg/dL (8.4-25.7); Calc. Creatinine Clearance 53 mL/min (70-130); Calcium 8.9 mg/dL (7.8-10.44); Carbon Dioxide 32 mmol/L (23-31); Chloride 105 mmol/L (98-107); Estimated GFR 68; Glucose 123 mg/dL (83-110); Potassium 4.7 mmol/L (3.5-5.1); Sodium 142 mmol/L (136-145)
[2024-04-20] MEDS: LevoFLOXacin 750 MG TAB PO SCH (09:06)
[2024-04-20] MEDS: Lorazepam 1 MG TAB PO SCH (11:24)
[2024-04-20 12:21] VITALS: BP 114/74; TEMP 97.5
== END 2024-04-20 17:00 | disposition home or self-care (01) | DRG 191 ==
LOC: ERS 21:12 → ERHOLD 04-18 01:28 → OBSVTOIN 04-18 03:04 → 2SE 04-18 14:15
PROVIDERS: ADMIT Student in an Organized Health Care Education/Training Program; ATTEND Internal Medicine
DX: J44.1 Chronic obstructive pulmonary disease with (acute) exacerbation (principal); I24.89 Other forms of acute ischemic heart disease; J96.11 Chronic respiratory failure with hypoxia; I50.42 Chronic combined systolic (congestive) and diastolic (congestive) heart failure; N18.2 Chronic kidney disease, stage 2 (mild); G47.00 Insomnia, unspecified; D63.1 Anemia in chronic kidney disease; F17.210 Nicotine dependence, cigarettes, uncomplicated; Z99.81 Dependence on supplemental oxygen; Z79.51 Long term (current) use of inhaled steroids; Z95.0 Presence of cardiac pacemaker; Z91.199 Patient's noncompliance with other medical treatment and regimen due to unspecified reason
CPT/HCPCS: 36415; 71275; 80048; 80061; 83735; 83880; 84484; 85025; 93005; 94760; 96372; 96374; 96375; J0456; J0692; J0696; J1650; J2470; J2919; J2930; J3475; J7050; J7620; J8540; Q9967

== ENCOUNTER 2024-04-21 06:18 | Inpatient (IN) | payer MEDICARE ==
[2024-04-21 06:58] LABS: Actual Bicarbonate (HCO3v) 32.4 mEq/L (22-28); Base Excess 4.6 mEq/L (-2.0 to +3.0); Calcium, Ionized (venous) 1.06 mmol/L (1.16-1.32); Chloride (VBG) 104 mmol/L (98-106); Hematocrit-VBG 42 % (42.0-52.0); Hemoglobin (Hb) 14.3 g/dL (12.6-17.4); Potassium (VBG) 5.03 mmol/L (3.70-5.30); Sodium 144 mmol/L (133-146); pH (venous) 7.333 (7.32-7.43)
[2024-04-21] MEDS ORDERED: methylPREDNISolone Sod Succ/PF 125 MG/2 ML VIAL ONE (07:01)
[2024-04-21 07:13] LABS: #Basophils Less than 0.03 10x3/uL (0.0-0.2); #Eosinphils Less than 0.03 10x3/uL (0.0-0.7); %Basophils 0.1 % (0.0-1.0); %Eosinophils 0.1 % (0.0-10.0); %Lymphocytes 15.5 % (21.0-51.0); %Monocytes 10.2 % (0.0-10.0); %Neutrophils 73.7 % (42.0-75.0); Hematocrit 42.2 % (42.0-52.0); Mean Corpuscular HGB CONC 30.8 g/dL (32.0-36.0); Mean Corpuscular Hemoglobin 26.4 pg (27.0-31.0); Mean Corpuscular Volume 85.8 fL (78.0-98.0); Platelet Count 149 10x3/uL (130-400); RBC Distribution Width 15.1 % (11.5-14.5); Red Blood Cell (RBC) Count 4.92 mill/uL (4.70-6.10)
[2024-04-21 07:59] LABS: Troponin I 0.049 ng/mL (< 0.028)
[2024-04-21 08:01] LABS: ALT (SGPT) 36 U/L (8-55); AST (SGOT) 59 U/L (5-34); Albumin 3.5 g/dL (3.4-4.8); Alkaline Phosphatase 69 U/L (40-110); Anion Gap 15 mmol/L (10-20); BUN (Urea Nitrogen) 20 mg/dL (8.4-25.7); Bilirubin, Total 0.4 mg/dL (0.2-1.2); Calc. Creatinine Clearance 0 mL/min (70-130); Calcium 8.8 mg/dL (7.8-10.44); Carbon Dioxide 27 mmol/L (23-31); Chloride 105 mmol/L (98-107); Estimated GFR 65; Glucose 70 mg/dL (83-110); Potassium 4.9 mmol/L (3.5-5.1); Protein, Total 6.5 g/dL (5.8-8.1); Sodium 142 mmol/L (136-145)
[2024-04-21] MEDS ORDERED: Albuterol 2.5 MG (0.5 mL) NEB ONE (08:01)
[2024-04-21] MEDS ORDERED: Ipratropium Bromide 2.5 ml Neb ONE (08:01)
[2024-04-21 09:26] LABS: Influenza A by NAA Not Detected (NotDetected); Influenza B by NAA Not Detected (NotDetected); SARS-CoV-2 NAA Rapid Test Not Detected (NotDetected)
[2024-04-21] MEDS ORDERED: Ipratropium/Albuterol 3 ML NEB NEB PRN (09:37)
[2024-04-21] MEDS ORDERED: Acetaminophen 650 MG Suppository PR PRN (09:38)
[2024-04-21] MEDS ORDERED: Senokot S 8.6-50 MG TAB PO PRN (09:38)
[2024-04-21] MEDS ORDERED: Ondansetron PF 4 MG/2 ML Vial IVP PRN ×2 (09:38→09:45)
[2024-04-21] MEDS ORDERED: Ondansetron ODT 4 MG TAB PO PRN (09:38)
[2024-04-21] MEDS ORDERED: Bisacodyl 5 MG TAB PO PRN (09:38)
[2024-04-21] MEDS ORDERED: Acetaminophen 325 MG TAB PO PRN (09:45)
[2024-04-21] MEDS ORDERED: Ondansetron ODT 4 MG TAB SL PRN (09:45)
[2024-04-21 10:24] LABS: Troponin I 0.045 ng/mL (< 0.028)
[2024-04-21] MEDS ORDERED: Cefepime 2 GM VIAL ONE (10:34)
[2024-04-21] MEDS ORDERED: Vancomycin 1 GM/200 ML (FROZEN) BAG ONE (10:34)
[2024-04-21] MEDS: Ipratropium/Albuterol 3 ML NEB NEB SCH (10:34)
[2024-04-21] MEDS ORDERED: Sodium Chloride 0.9% 100 ML ONE (10:35)
[2024-04-21 11:05] VITALS: BMI 19.0
[2024-04-21] MEDS ORDERED: VANCOMYCIN IVPB PRN (12:06)
[2024-04-21] MEDS: Vancomycin HCl 250 MG, Admixture Fee 1 EACH in Sodium Chloride 0.9% 100 ML IVPB SCH (12:56)
[2024-04-21] MEDS: methylPREDNISolone Sod Succ 40 MG VIAL IVP SCH ×2 (13:08→18:09)
[2024-04-21] MEDS: Lorazepam 0.5 MG TAB PO PRN (13:08)
[2024-04-21 13:16] LABS: Legionella Urinary Ag Negative (Negative); Strep pneumo Urine Ag NEGATIVE (NEGATIVE)
[2024-04-21 13:31] LABS: Troponin I 0.042 ng/mL (< 0.028)
[2024-04-21] MEDS: Mometasone 200 MCG/Formoterol 5 MCG 120 PUFF INHALER INH SCH (18:32)
[2024-04-21] MEDS: traZODone HCl 50 MG TAB PO SCH (20:02)
[2024-04-21] MEDS: guaiFENesin ER 600 MG TAB PO SCH (20:02)
[2024-04-21] MEDS ORDERED: Vancomycin 1 GM in Premix 1 BAG IVPB SCH (21:00)
[2024-04-22] MEDS: Dexmedetomidine In 0.9 % NaCl 100 ML IVPB SCH (00:19)
[2024-04-22 05:32] LABS: #Basophils Less than 0.03 10x3/uL (0.0-0.2); #Eosinphils Less than 0.03 10x3/uL (0.0-0.7); %Basophils 0.1 % (0.0-1.0); %Lymphocytes 5.3 % (21.0-51.0); %Monocytes 8.1 % (0.0-10.0); Hematocrit 34.2 % (42.0-52.0); Hemoglobin 11.1 g/dL (14.0-18.0); Mean Corpuscular HGB CONC 32.5 g/dL (32.0-36.0); Mean Corpuscular Hemoglobin 26.9 pg (27.0-31.0); Mean Corpuscular Volume 82.8 fL (78.0-98.0); Mean Platelet Volume 11.6 fL (7.4-10.4); Platelet Count 164 10x3/uL (130-400); RBC Distribution Width 14.6 % (11.5-14.5); Red Blood Cell (RBC) Count 4.13 mill/uL (4.70-6.10)
[2024-04-22 05:43] LABS: Vancomycin, Random 7.2 ug/mL (See Comment)
[2024-04-22 05:46] LABS: ALT (SGPT) 30 U/L (8-55); AST (SGOT) 21 U/L (5-34); Albumin 2.9 g/dL (3.4-4.8); Alkaline Phosphatase 74 U/L (40-110); Anion Gap 11 mmol/L (10-20); BUN (Urea Nitrogen) 24 mg/dL (8.4-25.7); Bilirubin, Total 0.3 mg/dL (0.2-1.2); Calc. Creatinine Clearance 43 mL/min (70-130); Calcium 8.5 mg/dL (7.8-10.44); Carbon Dioxide 30 mmol/L (23-31); Chloride 104 mmol/L (98-107); Estimated GFR 62; Globulin 2.4 g/dL (2.4-3.5); Glucose 195 mg/dL (83-110); Potassium 4.5 mmol/L (3.5-5.1); Protein, Total 5.3 g/dL (5.8-8.1); Sodium 140 mmol/L (136-145)
[2024-04-22] MEDS: ALPRAZolam 1 MG TAB PO SCH (09:14)
[2024-04-22] MEDS: Famotidine/PF 20 mg/2ml Vial SLOW IVP SCH (09:14)
[2024-04-22] MEDS: Aspirin Chewable 81 MG TAB PO SCH (09:14)
[2024-04-22] MEDS: Enoxaparin 30 MG (0.3 mL) SYRINGE SC SCH (09:14)
[2024-04-22] MEDS ORDERED: Vancomycin (BATCH) 1.25 GM in Premix 1 BAG IVPB SCH (11:00)
[2024-04-22] MEDS ORDERED: LevoFLOXacin 750 mg/D5W 750 MG in Premix 1 BAG IVPB SCH (14:00)
[2024-04-22] MEDS: ALPRAZolam 1 MG TAB PO PRN (14:54)
[2024-04-22] MEDS: Acetaminophen 325 MG TAB PO PRN (19:35)
[2024-04-22] MEDS: Sacubitril 24MG/Valsartan 26 MG TAB PO SCH (20:07)
[2024-04-22] MEDS: QUEtiapine 25 MG TAB PO SCH (20:08)
[2024-04-23] MEDS: LevoFLOXacin 500 MG TAB PO SCH (05:34)
[2024-04-23 07:09] LABS: #Basophils Less than 0.03 10x3/uL (0.0-0.2); %Basophils 0.1 % (0.0-1.0); %Eosinophils 0.2 % (0.0-10.0); %Lymphocytes 13.3 % (21.0-51.0); %Monocytes 9.8 % (0.0-10.0); Hematocrit 39.5 % (42.0-52.0); Mean Corpuscular HGB CONC 32.9 g/dL (32.0-36.0); Mean Corpuscular Hemoglobin 26.9 pg (27.0-31.0); Mean Corpuscular Volume 81.6 fL (78.0-98.0); Mean Platelet Volume 11.3 fL (7.4-10.4); Platelet Count 169 10x3/uL (130-400); RBC Distribution Width 14.7 % (11.5-14.5); Red Blood Cell (RBC) Count 4.84 mill/uL (4.70-6.10)
[2024-04-23 07:34] LABS: Anion Gap 12 mmol/L (10-20); BUN (Urea Nitrogen) 24 mg/dL (8.4-25.7); Calc. Creatinine Clearance 53 mL/min (70-130); Carbon Dioxide 32 mmol/L (23-31); Chloride 101 mmol/L (98-107); Estimated GFR 80; Glucose 85 mg/dL (83-110); Potassium 4.7 mmol/L (3.5-5.1); Sodium 140 mmol/L (136-145)
[2024-04-23 07:53] VITALS: TEMP 98.1
[2024-04-23] MEDS: Pantoprazole DR 40 MG TAB PO SCH (08:51)
[2024-04-23] MEDS: methylPREDNISolone Sod Succ 40 MG VIAL IVP SCH (08:52)
[2024-04-23 12:08] VITALS: BP 117/72
[2024-04-23] MEDS: predniSONE 20 MG TAB PO SCH (12:29)
[2024-04-24] MEDS ORDERED: predniSONE 20 MG TAB PO SCH (08:00)
== END 2024-04-23 13:43 | disposition home or self-care (01) | DRG 193 ==
LOC: ERS 06:18 → IMCU/EMU 10:26 → T4-A 04-22 13:22
PROVIDERS: ADMIT Family Medicine; ATTEND Internal Medicine
PROC: 5A09357 Assistance with Respiratory Ventilation, Less than 24 Consecutive Hours, Continuous Positive Airway Pressure (ICD-10-PCS; principal; 2024-04-21)
DX: J18.9 Pneumonia, unspecified organism (principal); J96.21 Acute and chronic respiratory failure with hypoxia; J44.1 Chronic obstructive pulmonary disease with (acute) exacerbation; I50.42 Chronic combined systolic (congestive) and diastolic (congestive) heart failure; I13.0 Hypertensive heart and chronic kidney disease with heart failure and stage 1 through stage 4 chronic kidney disease, or unspecified chronic kidney disease; N18.2 Chronic kidney disease, stage 2 (mild); D63.1 Anemia in chronic kidney disease; Z88.0 Allergy status to penicillin; Z79.899 Other long term (current) drug therapy; Z79.82 Long term (current) use of aspirin; F41.9 Anxiety disorder, unspecified; F17.210 Nicotine dependence, cigarettes, uncomplicated; Z91.148 Patient's other noncompliance with medication regimen for other reason; Z95.0 Presence of cardiac pacemaker
CPT/HCPCS: 36415; 71045; 80048; 80053; 80202; 82805; 83605; 83880; 84145; 84484; 85025; 87040; 87081; 87449; 87899; 93005; 94640; 94660; J0692; J1650; J2919; J2930; J3370-JW; J3490; J7512; J7611; J7620; J7644